=== PATIENT | female | born 1960 | race Caucasian/White ===

== ENCOUNTER → 2020-05-31 | Outpatient (CLI) | payer BC ==
[~2020-05-31] VITALS: Ht 162.6 cm; Wt 108.2 kg
[~2020-05-31] MED LIST: GLUCOPHAGE500 MG/TAB PO; LIPITOR 10MG10 MG PO
[2020-05-31 08:43] VITALS: BP 170/94; PULSE 91
[2020-05-31 10:05] VITALS: BP 180/98; PULSE 82
--- NOTE | 2020-05-31 10:11 | NUR ---
pt was given the disc from [facility].
== END ==
LOC: COL.RAD
DX: R59.0 Localized enlarged lymph nodes (principal)

== ENCOUNTER 2024-03-15 18:01 | Day surgery (SDC) | payer MEDICARE ==
[~2024-03-15] VITALS: Ht 160 cm; Wt 104.5 kg
--- NOTE | 2024-03-15 18:00 | NUR ---
Patient admitted to medical unit, arrived via private vehicle from [facility]. Pt awake, alert and oriented. States current pain is 3/10 in back. IV in place to right forearm, patent, clean/intact. Independent in room, steady on feed. Dr. Rosado notified of patient's arrival - orders given, ureteroscopy to take place tomorrow. Okay to eat tonight, clear liquids okay until 6am per Dr. Rosado. Patient's at the bedside. Denies further needs at this time.
[~2024-03-15 18:01] MED LIST changes: +NS 1,000 ML IV SCH; +Naloxone 0.4 MG/ML VIAL IV PRN; +Ondansetron 4 MG/2 ML VIAL IV PRN
--- NOTE | 2024-03-15 18:12 | NUR ---
1500-PA PELON BAH CALLED FROM [facility] REQUESTING TO TALK TO ON-CALL UROLOGIST REGARDING POSSIBLE TRANSFER FOR PATIENT FOR KIDNEY STONES AND HYDRONEPHROSIS. CALL TRANSFERRED TO DR. CONCEPCION WHO ACCEPTS PATIENT FOR OBSERVATION STATUS WILL PLANS TO TAKE FOR PROCEDURE THIS EVENING. PT. COMING VIA POV.
[2024-03-15] MEDS ORDERED: oxyCODONE 5 MG TAB PO PRN (18:15)
[2024-03-15] MEDS ORDERED: Morphine 4 MG/ML VIAL IV PRN (18:15)
[2024-03-15] MEDS ORDERED: Naloxone 0.4 MG/ML VIAL IV PRN (18:15)
[2024-03-15] MEDS ORDERED: Acetaminophen 500 MG TAB PO PRN (18:30)
[2024-03-15] MEDS ORDERED: Ibuprofen 600 MG TAB PO PRN (18:30)
[2024-03-15] MEDS ORDERED: COZAAR 50MG50 MG/TAB PO (18:54)
[2024-03-15] MEDS ORDERED: HCTZ 25MG TAB25 MG PO (18:55)
[2024-03-15] MEDS ORDERED: ASPIRIN E.C. 8181 MG PO (18:55)
[2024-03-15] MEDS ORDERED: CARDIZEM CD 12120 MG PO (18:56)
[2024-03-15 19:03] VITALS: BP 117/72; PULSE 91; TEMP 97.5
[2024-03-15] MEDS ORDERED: Acetaminophen 500 MG TAB PO SCH (19:15)
[2024-03-15 20:00] VITALS: BP_SYST 117
--- NOTE | 2024-03-15 20:00 | NUR ---
PATIENT RESTING IN BEDSIDE RECLINER WITH TV ON WITH AT BEDSIDE WITH NO ACUTE DISTRESS NOTED. PATIENT ON ROOM AIR. NS INFUSING INTO LEFT FOREARM WITH NO COMPLICATIONS NOTED. INITAL INTAKE AND INITAL ASSESSMENT COMPLETED. PATIENT TOLERATED WELL. PATIENT C/O PAIN TO BACK. RATES PAIN 7/10. PO OXYCODONE GIVEN PER MD ORDER. PATIENT DENIES ANY OTHER NEEDS. RECLINER LOCKED AND CALL LIGHT WITHIN REACH.
[2024-03-15] MEDS ORDERED: Ibuprofen 600 MG TAB PO SCH (22:15)
[2024-03-16] VITALS (14 sets, daily range): BP systolic 106–167; BP diastolic 65–79; PULSE 64–94; TEMP 97.5–98.2
--- NOTE | 2024-03-16 01:25 | NUR ---
PATIENT C/O PAIN. IV MORPHINE GIVEN PER MD ORDER. PATIENT RATES PAIN 8/10. PATIENT DENIES ANY OTHER NEEDS. BED IN LOW POSITION WITH WHEELS LOCKED WITH RAILS UP X2 AND CALL LIGHT WITHIN REACH. AT BEDSIDE.
--- NOTE | 2024-03-16 02:46 | NUR ---
PATIENT ASSISTED UP TO BATHROOM. GAIT STEADY. NS INFUSING INTO LEFT FOREARM WITH NO COMPLICATIONS NOTED. PATIENT C/O NAUSEA AND PAIN. IV ZOFRAN AND PO MOTRIN WITH TYLENOL GIVEN. PATIENT STATES PAIN LEVEL IS 5/10. PAITENT AMBULATED BACK TO BED. PATIENT DENIES ANY OTHER NEEDS. BED IN LOW POSITION WITH WHEELS LOCKED WITH RAILS UP X2 AND CALL LIGHT WITHIN REACH.
--- NOTE | 2024-03-16 08:00 | NUR ---
patient alert and oriented x4. patient denies pain at this time. some discomfort at times. patient on room air. npo, bruise to left forarm. urine is being strained. family at bedside. call light within reach. bed at lowest position.
--- NOTE | 2024-03-16 09:48 | NUR ---
[facility]ar[facility] met with patient to discuss discharge planning. Patient's spouse, Hubert (ph#[phone]) and son, Ariel are at bedside. Patient lives in [place] with Hubert and sees Dr. Thornton in [place] for primary care. Patient gets medications from [facility] in [place] with no difficulties and uses a walker occasionally for ambulation. Patient would like to complete DPOA-HC and designate her son, Ariel and , Hubert. STANISLAW assisted patient in completing the form, then STANISLAW and STANISLAW Eldridge signed as witnesses. STANISLAW also assisted patient's , Hubert in completing a DPOA-HC as well. Jazmyn Lancaster provided original and copies to patient. Jazmyn also placed a copy of DPOA in patient's chart. Patient plans to return home at time of discharge. Discharge Plan; Home
--- NOTE | 2024-03-16 11:33 | NUR ---
patient left for procedure at this time.
[2024-03-16] MEDS ORDERED: Lidocaine PF 2% (20 MG/ML) 5 ML VIAL ONE (11:49)
[2024-03-16] MEDS ORDERED: NORCO 325 MG-51 TAB PO (11:52)
[2024-03-16] MEDS ORDERED: Naloxone 0.4 MG/ML VIAL IV PRN (12:00)
[2024-03-16] MEDS ORDERED: Acetaminophen 325 MG TAB PO PRN (12:00)
[2024-03-16] MEDS ORDERED: oxyCODONE 5 MG TAB PO PRN (12:00)
[2024-03-16] MEDS ORDERED: Hyoscyamine 0.125 MG Sublingual TAB SL PRN (12:00)
[2024-03-16] MEDS ORDERED: Ondansetron 4 MG/2 ML VIAL IV PRN ×2 (12:00→12:45)
[2024-03-16] MEDS ORDERED: Iohexol 350 - 100 ML VIAL URETER-R ONE (12:30)
[2024-03-16] MEDS ORDERED: HYDROmorphone 1 MG/1 ML SYRINGE [PACU/SDC ONLY] IV PRN (12:45)
[2024-03-16] MEDS ORDERED: hydrALAZINE 20 MG/ML 1 ML VIAL IV PRN (12:45)
[2024-03-16] MEDS ORDERED: fentaNYL 50 MCG/ML 1 ML SYRINGE/VIAL [PACU/SDC ONLY] IV PRN (12:45)
[2024-03-16] MEDS ORDERED: Acetaminophen 500 MG TAB PO SCH (12:50)
[2024-03-16] MEDS ORDERED: Lidocaine 2% (20 MG/ML) 20 ML UROJET UR ONE (12:58)
--- NOTE | 2024-03-16 15:27 | NUR ---
PATIENT DISCHARGE INSTRUCTIONS GIVEN. PATIENT VERBALIZED UNDERSTANDING. PATIENT DENIED PAIN AFTER SURGERY. SOME SMALL DISCOMFORT BUT DID NOT WANT PAIN MEDICATION. PATIENT URINATING PINK TINGED URINE,NO PAIN WITH URINATION REPORTED. PATIENT IV REMOVED. PATIENT FAMILY AT BEDSIDE. QUESTIONS ANSWERED CALL LIGHT WITHIN REACH.
--- NOTE | 2024-03-16 15:35 | NUR ---
PATIENT ESCORTED OUT OF UNIT BY PATIENT MANAGER REQUIREMENTS. FAMILY ACCOMPANIED PATIENT.
== END 2024-03-16 15:35 | disposition home or self-care (01) ==
LOC: MEDICAL 18:01 → SDCO 18:01 → MEDICAL 18:01 → SDCO 03-16 15:35
DX: N20.1 Calculus of ureter (principal); Z79.82 Long term (current) use of aspirin
CPT/HCPCS: OP; C1769; C1894; C2617; G0378; G0379; J2270; J2405; J2704; J7030; Q9967